=== PATIENT | male | born 1950 | race Asian ===

== ENCOUNTER 2017-04-19 05:31 | Inpatient (IN) | payer OTHER, MEDICAID ==
[~2017-04-19] VITALS: Ht 165.1 cm; Wt 79.8 kg
[2017-04-19] VITALS (13 sets, daily range): BP systolic 123–132; BP diastolic 63–75; PULSE 81–104; RESP 12–17; TEMP 97.7–98.9; O2SAT 99–100
[~2017-04-19 05:31] MED LIST: ALBU2.5V7 INH; ALEN70TA3 GT; AMLO5TAB4 GT; AMOX-423 GT; ASCO500T20 GT; BISA10SU65 RC; CALC-939 GT; CHLO473M5 PO; IBUP-1479 GT; INSU100V9 SUBCUT; LIP10 GT; LOSA50TA3 GT; MAGN400O4 GT; METO-442 PO; MULT9LIQ6 GT; PANT40SU2 GT; PRAV40TA GT; SALS500T19 GT; SENN-169 GT; SSNPH SQ; TYL160/5 GT; Uti-stat GT
--- NOTE | 2017-04-19 05:32 | NUR ---
Patient to ER bed 6 to gown for evaluation. Side rails up. Report given to Mimi FORTUNE.
--- NOTE | 2017-04-19 05:34 | NUR ---
RT at bedside setting up the vent
--- NOTE | 2017-04-19 05:35 | NUR ---
Patient brought to ER by Sqad [facility] from [facility] C/O palpitations & "more altered than normal" Patient is vent dependent, tracheostomy, tracks with eyes, responds to pain, rhonchi throughout, G-tube present, abdomen soft distended, incontinent of urine & feces, bedbound, upper extremities mildly edematous, lower extremities muscle atrophy, pressure ulcer on coxis. Mild respiratomy distress noted.
--- NOTE | 2017-04-19 05:39 | NUR ---
ER MD Whitney at bedside evaluating the patient
--- NOTE | 2017-04-19 05:40 | NUR ---
# 20 gauge angiocath placed to left radial vein. Use of asceptic technique. Opsite placed over site. Blood return noted. Blood for lab drawn from site, including blood cultures & lactic acid. Flushed with 10 cc of normal saline. No evidence of infiltration noted. Patient tolerated well.
[2017-04-19] MEDS ORDERED: NACL 0.9% 1,000 ML IV ONE ×2 (05:45→06:15)
--- NOTE | 2017-04-19 05:50 | NUR ---
# 16 FR Wilson catheter with use of sterile technique. Immediate return of 300 cc cloudy with sediments urine noted. Bedside drainage bag placed below level of bladder. Urine sample collected and sent to lab. Pt tolerated procedure well. Patient unable to toilet self.
[2017-04-19] MEDS ORDERED: IPRA0.2S6 INH ×2 (05:52)
[2017-04-19] MEDS ORDERED: FAMO20TA8 GT (05:54)
[2017-04-19] MEDS ORDERED: NA P118E RC (05:57)
[2017-04-19] MEDS ORDERED: GLUC1VIA4 IM (05:58)
[2017-04-19] MEDS ORDERED: HYDR-1189 GT (06:00)
[2017-04-19] MEDS ORDERED: LACT10SO6 PO (06:01)
--- NOTE | 2017-04-19 06:01 | NUR ---
Radiology at bedside with portable for xray
[2017-04-19 06:04] LABS: BILIRUBIN,URINE NEGATIVE (NEGATIVE); BLOOD, URINE 3+ (NEGATIVE); CLARITY/URINE CLOUDY (CLEAR); COLOR,URINE YELLOW (YELLOW); GLUCOSE,URINE NEGATIVE (NEGATIVE); KETONES,URINE NEGATIVE (NEGATIVE); LEUKOCYTE ESTERASE ,URINE 3+ (NEGATIVE); NITRITE, URINE NEGATIVE (NEGATIVE); PROTEIN URINE 2+ (NEGATIVE); UROBILINOGEN,URINE 0.2 (0.2-1.0)
[2017-04-19] MEDS ORDERED: MAGN296S30 GT (06:04)
[2017-04-19 06:05] LABS: BACTERIA,URINE FEW /HPF (None Seen); WBC,URINE >100 /HPF (0-3)
[2017-04-19] MEDS ORDERED: MINE25OI3 GT (06:10)
[2017-04-19] MEDS ORDERED: MULT GT (06:12)
[2017-04-19 06:13] LABS: BASOPHILS # (AUTO) 0.1 K/uL (0.0-0.2); BASOPHILS % (AUTO) 0.4 % (0.0-2.0); EOSINOPHILS % (AUTO) 0.1 % (0.0-4.0); HEMATOCRIT 32.3 % (36-54); HEMOGLOBIN 10.4 g/dL (14.0-18.0); LYMPHOCYTES # (AUTO) 0.4 K/uL (1.0-5.5); LYMPHOCYTES % (AUTO) 3.2 % (20.5-51.5); MEAN CORPUSCULAR HEMOGLOBIN 27 pg (27-31); MEAN CORPUSCULAR HGB CONC 32 % (32-36); MEAN CORPUSCULAR VOLUME 85 fL (79.0-98.0); MONOCYTES # (AUTO) 1.4 K/uL (0.0-1.0); MONOCYTES % (AUTO) 10.6 % (1.7-9.3); NEUTROPHILS # (AUTO) 11.5 K/uL (1.8-7.7); NEUTROPHILS % (AUTO) 85.7 % (40.0-70.0); PLATELET COUNT (AUTO) 258 K/uL (130-430); RED BLOOD CELL COUNT(AUTO) 3.82 MIL/uL (4.2-6.2); RED CELL DISTRIBUTION WIDTH 16.1 % (9.0-15.0); WHITE BLOOD COUNT (AUTO) 13.4 K/uL (4.8-10.8)
[2017-04-19] MEDS ORDERED: SIME80TA PO (06:13)
[2017-04-19 06:14] LABS: CALCIUM 9.8 mg/dL (8.4-11.0); CREATININE 1.41 mg/dL (0.55-1.30); POTASSIUM 4.6 mmol/L (3.5-5.1)
[2017-04-19] MEDS ORDERED: TRAM50TA92 PO (06:14)
[2017-04-19] MEDS ORDERED: ZIN220 GT (06:15)
[2017-04-19 06:18] LABS: ALBUMIN 3.4 g/dL (3.4-4.8); PROTHROMBIN TIME 10.6 SECS (9.5-12.5); TOTAL BILIRUBIN 0.5 mg/dL (0.0-1.0)
[2017-04-19] MEDS ORDERED: SSNOVOLOG SUBCUT (06:27)
[2017-04-19] MEDS ORDERED: cefTRIAXone 1 GM VIAL IM ONE (06:45)
[2017-04-19] MEDS ORDERED: cefTRIAXone 1 GM VIAL ONE (07:15)
[2017-04-19] MEDS ORDERED: cefTRIAXone 1 GM in D5W 50 ML IV ONE (07:15)
--- NOTE | 2017-04-19 07:17 | NUR ---
Received bedside report from Mimi FORTUNE. Pt awake, alert, orientated x1 to self. Pt unable to follow commands but withdraws to painful stimuli. Pt is a chronic trach to vent. Pt tolerating vent settings. O2 sat 100%. No acute distress noted. Will continue to monitor.
--- NOTE | 2017-04-19 07:19 | NUR ---
Patient care endorsed to Leah FORTUNE via SBAR.
--- NOTE | 2017-04-19 07:55 | NUR ---
Pt transported to CT via gurney with assistance from RT.
--- NOTE | 2017-04-19 08:10 | NUR ---
Pt returned from CT.
[2017-04-19] MEDS ORDERED: PIPERACILLIN/TAZOBACTAM 2.25 GM in NS 50 ML IV ONE (08:15)
[2017-04-19] MEDS ORDERED: VANCOMYCIN HCL 1,000 MG in NS 250 ML IV ONE (08:15)
[2017-04-19] MEDS ORDERED: ACETAMINOPHEN 325 MG TABLET PO PRN (08:15)
[2017-04-19] MEDS ORDERED: ONDANSETRON HCL 4 MG/2 ML VIAL IVP PRN (08:15)
[2017-04-19] MEDS ORDERED: HYDROcodone/ACETAMIN 5-325 MG TAB (NORCO/ VICODIN) PO PRN (08:15)
[2017-04-19] MEDS ORDERED: MORPHINE 2 MG/ML INJ. SYRINGE IVP PRN (08:15)
--- NOTE | 2017-04-19 08:55 | NUR ---
Pt transported to tele bed 111A via gurney with assistance from RT. Bedside report given to Leanna FORTUNE. V/S stable, all care endorse to Leanna FORTUNE.
--- NOTE | 2017-04-19 09:00 | NUR ---
ADMISSION NOTE RECEIVED PT FROM Papito PHILLIPS WITH A VENTILATOR, AWAKE BUT APHASIC, BREATHING NON LABORED,PLACED ON TELEMETRY, NO FAMILY MEMBER AT THIS TIME, DUE TO PT MENTAL CONDITION, ADMISSION DATA WILL GET FROM PREVIOUS RECORDS.
--- NOTE | 2017-04-19 09:18 | NUR ---
@0845 TRANSFERRED TO PT TO ROOM 111 FROM ER. NO RESPIRATORY DISTRESS NOTED
--- NOTE | 2017-04-19 10:29 | NUR ---
Consult was called Re: Sepsis secondary to uti spoke with Dana from Dr Stefan rasmussen .
--- NOTE | 2017-04-19 11:00 | NUR ---
note Rec'd pt from admit TONG Ram at 1030am for continuation of care. Pt having resp care from resp therapist at this time. Pt on mechanical ventilator. IVF's and antibiotic IVPB infusing at this time. Pt on air mattress and pt being turned q2' and needs attended to at this time. Call light within reach. No needs noted.
[2017-04-19] MEDS: 0.45% NACL 1,000 ML IV SCH (11:05)
[2017-04-19] MEDS: IPRATROPIUM/ALBUTEROL SULFATE 3 ML AMPUL.NEB INH SCH ×4 (11:19→23:24)
--- NOTE | 2017-04-19 13:30 | NUR ---
NOTE PT RESTING IN BED. PT HAS HIS EYES CLOSED AND NO PAIN/SOB NOTED AT THIS TIME. TELE UNIT HAS BEEN ATTACHED AND INTACT ALL SHIFT. CALL LIGHT WITHIN REACH AND PT CHECKED ON Q1' AND PRN FOR NEEDS.
--- NOTE | 2017-04-19 15:30 | NUR ---
NOTE PT RESTING IN BED. PT TURNED Q2' FOR COMFORT AND CIRCULATION AT THIS TIME. RESP THERAPIST ATTENDING TO RESP NEEDS AT THIS TIME. NO NEEDS NOTED. CALL LIGHT WITHIN REACH.
--- NOTE | 2017-04-19 17:00 | NUR ---
NOTE PT RESTING IN BED. IVF'S INFUSING WELL AND VILLANUEVA CATHETER INTACT AND DRAINING WELL. CALL LIGHT WITHIN REACH.
--- NOTE | 2017-04-19 18:08 | NUR ---
NOTE PT RESTING IN BED WITH EYES CLOSED. NO SOB/RESP DISTRESS OR PAIN/DISCOMFORT NOTED AT THIS TIME. IVF'S INFUSING WELL THROUGH LEFT WRIST IV SITE. TRACH VENTILATING PT WELL AT THIS TIME. VILLANUEVA CATHETER INTACT AND DRAINING WELL. NO NEEDS NOTED. CALL LIGHT WITHIN REACH. TELE UNIT INTACT AND TRANSMITTING. PT WAS CHECKED ON Q1' AND PRN FOR NEEDS AND CARE. PT MAINTAINED WITH SAFETY PRECAUTIONS ALL SHIFT.
--- NOTE | 2017-04-19 19:50 | NUR ---
Initial Notes Patient resting in bed, no s/s of pain or discomfort noted. No SOB noted, on trach, settings verified. Denies nausea/vomiting at this time. IV site patent, flushes well, infusing fluids as ordered. Patient repositioned in bed. Goal of pain management, cardiac/respiratory stability and safety this shift. Safety precautions in place. Will continue to monitor.
--- NOTE | 2017-04-19 22:10 | NUR ---
Notes Patient sleeping at this time. No s/s of pain or discomfort noted. No SOB noted. IV site patent, flushes well, infusing fluids as ordered. G tube feeding ongoing, no residual noted at this time. Will continue to monitor.
[2017-04-20] VITALS (18 sets, daily range): BP systolic 108–124; BP diastolic 62–73; PULSE 75–99; RESP 17–19; TEMP 97–97.8; O2SAT 99–100
--- NOTE | 2017-04-20 00:10 | NUR ---
Notes Patient sleeping at this time. No s/s of pain or discomfort noted. No SOB noted. IV site patent, flushes well, infusing fluids as ordered. Patient cleaned and repositioned with MANAGER LSW. Will continue to monitor.
[2017-04-20] MEDS: 0.45% NACL 1,000 ML IV SCH ×2 (02:52→16:48)
[2017-04-20] MEDS: IPRATROPIUM/ALBUTEROL SULFATE 3 ML AMPUL.NEB INH SCH ×5 (03:18→20:44)
--- NOTE | 2017-04-20 04:15 | NUR ---
Notes Patient sleeping at this time. No s/s of pain or discomfort noted. No SOB noted. IV site patent, flushes well, infusing fluids as ordered. Will continue to monitor.
--- NOTE | 2017-04-20 06:44 | NUR ---
Closing Notes No s/s of pain or discomfort noted. No SOB noted, on trach. Denies nausea/vomiting at this time. IV site patent, flushes well, infusing fluids as ordered. Goal of pain management, cardiac/respiratory stability and safety met. Safety precautions in place. Will continue to monitor.
--- NOTE | 2017-04-20 08:00 | NUR ---
NOTE PT RESTING IN BED. VSS. TRACH VENTILATING PT WELL AT THIS TIME. IVF'S INFUSING THROUGH LEFT HAND IV SITE. NO SOB/RESP DISTRESS OR PAIN/DISCOMFORT NOTED AT THIS TIME. GT FEEDINGS INFUSING WELL THROUGH GT SITE. VILLANUEVA CATHETER INTACT AND DRAINING WELL. CALL LIGHT WITHIN REACH.
--- NOTE | 2017-04-20 08:48 | NUR ---
Nutrition Update Desmond Scale 14 noted. Pt admitted for sepsis 2/2 UTI. Diet: Diabetisource AC at 70 ml/hr, Free Water Flush: 100 via GT BMI: 29.3 kg/m2 RD to follow per nutrition care standards.
[2017-04-20 09:06] LABS: BASOPHILS % (AUTO) 0.4 % (0.0-2.0); EOSINOPHILS # (AUTO) 0.2 K/uL (0.0-0.4); EOSINOPHILS % (AUTO) 2.7 % (0.0-4.0); HEMATOCRIT 27.8 % (36-54); HEMOGLOBIN 8.8 g/dL (14.0-18.0); LYMPHOCYTES # (AUTO) 0.9 K/uL (1.0-5.5); LYMPHOCYTES % (AUTO) 11.7 % (20.5-51.5); MEAN CORPUSCULAR HEMOGLOBIN 27 pg (27-31); MEAN CORPUSCULAR HGB CONC 32 % (32-36); MEAN CORPUSCULAR VOLUME 85 fL (79.0-98.0); MONOCYTES # (AUTO) 0.6 K/uL (0.0-1.0); MONOCYTES % (AUTO) 7.8 % (1.7-9.3); NEUTROPHILS # (AUTO) 5.7 K/uL (1.8-7.7); NEUTROPHILS % (AUTO) 77.4 % (40.0-70.0); PLATELET COUNT (AUTO) 192 K/uL (130-430); RED BLOOD CELL COUNT(AUTO) 3.28 MIL/uL (4.2-6.2); RED CELL DISTRIBUTION WIDTH 16.4 % (9.0-15.0); WHITE BLOOD COUNT (AUTO) 7.4 K/uL (4.8-10.8)
[2017-04-20 09:18] LABS: CALCIUM 8.9 mg/dL (8.4-11.0); CREATININE 1.23 mg/dL (0.55-1.30); POTASSIUM 3.9 mmol/L (3.5-5.1)
[2017-04-20 09:22] LABS: ALBUMIN 2.7 g/dL (3.4-4.8); PHOSPHORUS 2.5 mg/dL (2.7-4.5); TOTAL BILIRUBIN 0.4 mg/dL (0.0-1.0)
--- NOTE | 2017-04-20 10:00 | NUR ---
NOTED PT'S MRSA SCREEN WAS POSITIVE FOR MRSA. PT IS ALREADY ON ISOLATION PRECAUTIONS FOR HX OF MRSA. ABG'S WAS DONE AND RESULTS WNL. CALL LIGHT WITHIN REACH.
--- NOTE | 2017-04-20 11:03 | NUR ---
DISCHARGE PLANNING DC planning for LTAC at [facility]. FRANKI Longoria speaking with family. Addendum: 04/20/17 at 1406 by Kiersten RICHARDSON Per note family request for intermediate project manager subacute placement close to [facility]. Faxed referrals to: [facility] [address] [place] [address] [phone] [facility] [address] [place] [address] [phone] [facility] [address] [place] [address] [phone] [facility] [address] [place] [address] [phone] DCP will follow up on SubAcute bed availability. Family agreeable with patient to return back to [facility] if no bed available. Addendum: 04/20/17 at 1441 by Kiersten RICHARDSON Meanwhile; Faxed referral to [facility] [phone]. Will follow up.
--- NOTE | 2017-04-20 12:30 | NUR ---
NOTE NO NEEDS NOTED. PT RESTING WITH EYES CLOSED. TRACH CARE AND BREATHING TREATMENTS BEING DONE BY RESP THERAPIST SCHEDULED. NO NEEDS NOTED. PT TURNED Q2' FOR COMFORT AND CIRCULATION. CALL LIGHT WITHIN REACH.
--- NOTE | 2017-04-20 16:15 | NUR ---
NOTE PT TURNED Q2' AND REPOSITIONED NEEDED. GT FEEDINGS INFUSING WELL. IVF'S INFUSING AT THIS TIME. NO SOB/RESP DISTRESS OR PAIN/DISCOMFORT WAS NOTED AT THIS TIME. CALL LIGHT WITHIN REACH. TELE UNIT ATTACHED AND INTACT AT THIS TIME. NO NEEDS NOTED. PT CHECKED ON Q1' AND PRN FOR NEEDS AND CARE ALL SHIFT.
--- NOTE | 2017-04-20 18:25 | NUR ---
NOTE PT RESTING IN BED WITH EYES CLOSED. NO SOB./RESP DISTRESS OR PAIN/DISCOMFORT NOTED. TELE UNIT ATTACHED AND INTACT ALL SHIFT. VILLANUEVA CATHETER INTACT AND DRAINING WELL. PT WAS CHECKED ON Q1' AND PRN FOR NEEDS AND CARE. PT WAS MAINTAINED WITH SAFETY PRECAUTIONS ALL SHIFT. IVF'S INFUSING WELL THROUGH LEFT HAND IV SITE. NO NEEDS NOTED AT THIS TIME. TRACH VENTILATING PT WELL AND GT FEEDINGS ON AND INFUSING. CALL LIGHT WITHIN REACH.
--- NOTE | 2017-04-20 22:13 | NUR ---
Notes Patient sleeping at this time. No s/s of pain or discomfort noted. No SOB noted. IV site patent, flushes well, infusing fluids as ordered. Diabetisource feeding @ 70cc/hr ongoing, no residual noted at this time. Will continue to monitor.
[2017-04-21] VITALS (20 sets, daily range): BP systolic 117–148; BP diastolic 67–84; PULSE 63–86; RESP 16–20; TEMP 96.6–97.6; O2SAT 98–100; Ht 165.1 cm; Wt 79.8 kg
--- NOTE | 2017-04-21 00:06 | NUR ---
REPORT GIVEN/ DISCHARGE : REPORT GIVEN TO RN CAME WITH AMBULANCE ; PT IS COMFORTABLE ; NOT IN ANY ACUTE DISTRESS; DISCHARGE INSTRUCTIONS AND ARE WITH EMT ; PT SI UNABLE TO AMBULATE ; PT IN STABLE CONDITION ; VITALS ARE STABLE ; ID BAND REMOVED ; GT FLUSHED WELL AND DISCONNECTED ; IV FLUSHED WELL AND DISCONNECTED; IV CATH(ACCESS )IS STILL INTACT ;VILLANUEVA IS INTACT ; NO BELONGINGS NOTED AT BEDSIDE . BACTROBAN MEDICATION TUBE GIVEN TO EMT . PT IS ON TRACH WITH VENT SUPPORT , SIMV 6, TV 500 , PEEP 5 , FIO2 30% . PT WHEELED OUTSIDE VIA [place] .[facility] IS GOING [facility] . Addendum: 04/22/17 at 0008 by Benito Torres RN WRONG DATE Addendum: 04/22/17 at 0008 by Benito Torres RN CORRECTION : WRONG DATE
--- NOTE | 2017-04-21 00:08 | NUR ---
Notes Patient sleeping at this time. No s/s of pain or discomfort noted. No SOB noted. IV site patent, flushes well, infusing fluids as ordered. Patient cleaned and repositioned with COIL TESTER. Will continue to monitor.
[2017-04-21] MEDS: IPRATROPIUM/ALBUTEROL SULFATE 3 ML AMPUL.NEB INH SCH ×5 (03:15→20:23)
--- NOTE | 2017-04-21 04:10 | NUR ---
Notes Patient sleeping at this time. No s/s of pain or discomfort noted. No SOB noted. IV site patent, flushes well, infusing fluids as ordered. Patient cleaned and repositioned with MANAGER INTERFACE. Will continue to monitor.
[2017-04-21] MEDS: 0.45% NACL 1,000 ML IV SCH (05:29)
--- NOTE | 2017-04-21 07:30 | NUR ---
AM NOTES RECIEVED REPORT FROM ANASTACIO, OFFGOING NURSE, AT THE BEDSIDE. PATIENT IS AWAKE AND ALERT, AND NONVERBAL, BUT NODS YES AND NO. PATIENT UNDERSTANDS HAKKA UPPER SORBIAN, WHICH I SPEAK. PT ON TRACH VIA VENT, FIO2 30, TV 500, PEEP 5. PT STATES NO DISCOMFORT OR PAIN AT THIS TIME, BUT WOULD LIKE HIS LIMBS STRETCHED ON THE LOWER EXTREMITIES. PT HAS WEAK LEFT ARM. PT HAS LOWER AIR MATTRESS. REPOSITION FOR COMFORT. GT FEEDING TOLERATED WELL AND IV FLUIDS INFUSING WELL. MAINTAINED ON CONTACT ISOLATION FOR MRSA NARES. NOTED THAT THERE IS NO IV ANTIBIOTICS ORDERED. NOTIFIED NIGHT NURSE. NIGHT NURSE PAGED .
--- NOTE | 2017-04-21 07:35 | NUR ---
Pagecarlos NARANJO, to clarify regarding antibiotic order for patient. Awaiting call back.
--- NOTE | 2017-04-21 07:40 | NUR ---
ATTENDING MD DR Chadd CONTRERAS WAS CALLED RE: CLARIFICATION OF ABX. LEFT A VOICE MESSAGE
[2017-04-21 09:17] LABS: BASOPHILS % (AUTO) 0.4 % (0.0-2.0); EOSINOPHILS # (AUTO) 0.3 K/uL (0.0-0.4); EOSINOPHILS % (AUTO) 5.3 % (0.0-4.0); HEMATOCRIT 27.8 % (36-54); HEMOGLOBIN 8.8 g/dL (14.0-18.0); LYMPHOCYTES % (AUTO) 17.8 % (20.5-51.5); MEAN CORPUSCULAR HEMOGLOBIN 27 pg (27-31); MEAN CORPUSCULAR HGB CONC 32 % (32-36); MEAN CORPUSCULAR VOLUME 85 fL (79.0-98.0); MONOCYTES # (AUTO) 0.5 K/uL (0.0-1.0); MONOCYTES % (AUTO) 9.9 % (1.7-9.3); NEUTROPHILS # (AUTO) 3.7 K/uL (1.8-7.7); NEUTROPHILS % (AUTO) 66.6 % (40.0-70.0); PLATELET COUNT (AUTO) 186 K/uL (130-430); RED BLOOD CELL COUNT(AUTO) 3.27 MIL/uL (4.2-6.2)
[2017-04-21 09:22] LABS: WHITE BLOOD COUNT (AUTO) 5.5 K/uL (4.8-10.8)
[2017-04-21 09:41] LABS: ALBUMIN 2.7 g/dL (3.4-4.8); CALCIUM 9.1 mg/dL (8.4-11.0); CREATININE 0.95 mg/dL (0.55-1.30); POTASSIUM 3.8 mmol/L (3.5-5.1); TOTAL BILIRUBIN 0.3 mg/dL (0.0-1.0)
--- NOTE | 2017-04-21 09:58 | NUR ---
Notes Spoke to Dr. Thomas regarding antibiotics order and home medication. MD ordered vancomycin and zosyn via pharmacy to dose, and order to hold all medications from home. MD also ordered to transfuse 1 unit of PRBC. MD also wants to inform case management assistant for patient to be transferred to [facility] in [place], and if not accepted, patient will go to [facility]. Chaka, case management assistant, made aware.
[2017-04-21] MEDS ORDERED: COMMUNICATION ORDER XX ONE ×2 (10:00→11:45)
--- NOTE | 2017-04-21 10:02 | NUR ---
Rounds Patient resting bed comfortably. Turned and repositioned the patient on the Left side.
[2017-04-21] MEDS ORDERED: VANCOMYCIN HCL 1,000 MG in NS 250 ML IV SCH (10:15)
--- NOTE | 2017-04-21 10:29 | NUR ---
TELEPHONE CONSENT SPOKE TO PATIENT'S COUSIN, KVNG, WHO IS ALSO THE DECISION MAKER FOR THE PT REGARDING CONSENT TO ADMINISTER BLOOD. KVNG AGREED TO TRANSFUSE BLOOD.
[2017-04-21] MEDS ORDERED: PIPERACILLIN/TAZOBACTAM 3.375 GM/ D5W 50 ML IV SCH ×2 (10:30)
--- NOTE | 2017-04-21 11:50 | NUR ---
MD CALLED SPOKE TO DR. CONTRERAS AND MADE AWARE OF URINE CULTURE RESULTS. WANTS TO ADD MEROPENEM PER PHARMACY TO DOSE. WANTS THIS NURSE TO PUT ORDERS.
--- NOTE | 2017-04-21 12:20 | NUR ---
NOTES SPOKE TO DR. CONTRERAS REGARDING MEROPENEM ORDER. PHARMACY RECOMMENDATION IS TO NOT GIVE TWO ANTIBIOTICS AT THE SAME TIME. ORDERED TO Josee ROSARIO. PHARMACY MADE AWARE.
--- NOTE | 2017-04-21 12:22 | NUR ---
DISCHARGE PLANNING [facility], [facility], [facility], and [facility] currently has no terminologist Subacute bed available. Met with Ashleigh Jeff [phone] in nurse station who stated MD requested patient to be evaluated and will return DCP call with facility decision. Meanwhile; Called [facility] [phone] spoke with Shant in admitting who will return call with ISO bed availability. DCP will follow up. Addendum: 04/21/17 at 1538 by Kiersten Alcantar DP Ashleigh Jeff [phone] patient accepted [facility] assigned to room 308A RN to report [phone] bed available after 7pm. TONG Garcia made aware. Pending discharge order. Ordered Radiology Cd. Placed transportation packet in nurses station. Pending discharge order. Addendum: 04/21/17 at 1548 by Kiersten Alcantar DP Called [facility] [phone] spoke with SHAN cohn ACLS (Financial Coach) transport on will call.
--- NOTE | 2017-04-21 14:05 | NUR ---
NOTES PATIENT RESTING COMFORTABLE IN BED WITH NO SIGNS OR SYMPTOMS OF PAIN. G-TUBE FEEDING TOLERATED WELL. IV ANTIBIOTICS STILL INFUSING, WILL INFUSE BLOOD AFTER ANTIBIOTICS IS COMPLETE.
--- NOTE | 2017-04-21 14:31 | NUR ---
Dietitian Recommendations * Recommend continuing Diabetisource AC at 70 ml/hr, Free Water Flush: 100 via GT per MD Provides: 2016 kcal/day, 101 gm protein/day, and 1374 ml free water/day Meets: 88% of upper end of estimated caloric needs and 109% of lower end of estimated protein needs LP, RD Please refer to Nutrition Assessment for details.
--- NOTE | 2017-04-21 14:45 | NUR ---
NOTES BLOOD TRANSFUSION STARTED AT THIS TIME. PATIENT AFEBRILE. WILL MONITOR FOR SIGNS AND SYMPTOMS OF TRANSFUSION REACTIONS.
--- NOTE | 2017-04-21 15:50 | NUR ---
NOTES- SPOKE TO DR. CONTRERAS AND MADE AWARE THAT PATIENT IS ACCEPTED AT [facility]. MD OKAYED TO DISCHARGE PATIENT AND HE WILL FOLLOW UP PATIENT THERE.
--- NOTE | 2017-04-21 16:05 | NUR ---
NOTES NOTIFIED PATIENTS FAMILY OF TRANSFERRING PATIENT TO [facility]. VKNG JALIL (COUSIN) MADE AWARE AND AGREED ON TRANSFER. Addendum: 04/21/17 at 1629 by Yesenia Kyle RN PATIENT IS AWAKE AND ALERT, RESTING COMFORTABLY IN BED. PATIENT STATES NO DISCOMFORT OR FEELINGS OF PAIN AT THIS TIME. NOTIFIED PATIENT THAT HE WILL BE DISCHARGED. BLOOD TRANSFUSION STILL INFUSING. IV SITE PATENT AND INTACT, NO SIGNS OF REDNESS OR SWELLING. G-TUBE FEEDING TOLERATED WELL. PATIENT REPOSITIONED ONTO THE LEFT SIDE.
[2017-04-21] MEDS ORDERED: MEROPENEM 1 GM in NS 100 ML IV SCH (17:00)
--- NOTE | 2017-04-21 17:18 | NUR ---
ARRANGED WITH [facility] ACLS TRANSPORT (VENT/MONITOR) TO [facility] RM 308A. FUNERAL SERVICE PRACTITIONER/EMBALMER TIME IS 2100. SPOKE TO JAMEEL
--- NOTE | 2017-04-21 18:02 | NUR ---
notes- Blood transfusion is done. no reaction noted.
--- NOTE | 2017-04-21 18:31 | NUR ---
CLOSING NOTES PATIENT IS AWAKE, ALERT, AND RESTING COMFORTABLY IN BED. PT DENIES ANY SYMPTOMS OF PAIN AT THIS MOMENT. TOLERATED GTUBE FEEDING WELL THROUGHOUT THE SHIFT. PICTURE TAKEN FOR THE BUTTOCKS AND DOCUMENTED IN THE CHARTS, ZGAURD APPLIED AND COVERED WITH FOAM DRESSING. PATIENT WILL BE DISCHARGED TO [facility] AT [facility]. WILL ENDORSE TO ONCOMING NURSE.
--- NOTE | 2017-04-21 20:40 | NUR ---
INITIAL NOTES: REPORT RECEIVED FROM AN , PT IS COMFORTABLE , GETTING READY TO TRANSFER TO [facility] BY 9 PM TONIGHT . WILL CONTINUE TO MONITOR.
--- NOTE | 2017-04-21 20:44 | NUR ---
REPORT GIVEN: ADINA RUELAS [place] [facility] CALLED , REPORT GIVEN TO RN , INFORMED HER ABOUT THE DNR STATUS , ON TRACH WITH MECHANICAL VENT SIMV 6, TV 500, PEEP 5, FIO2 30% , ALSO INFORMED HER THAT PT IS ON ISOLATION FOR MRSA NARES AND MDRO URINE , GIVEN MEDICATION LIST , INFORMED ABOUT THE WOUND;IV ACCESS , VILLANUEVA AND GT FEEDING , . RN IS SATISFIED WITH THE REPORT , NO QUESTIONS AT THIS TIME . PER DIE DRAWING CHECKER AMBULANCE WILL BE LATE. WILL CONTINUE TO MONITOR PT .
[2017-04-21] MEDS ORDERED: MUPIROCIN 2% TOPICAL OINTMENT 22 GM NS SCH (21:00)
--- NOTE | 2017-04-21 22:00 | NUR ---
RN NOTES: PT IS COMFORTABLE ; NOT IN ANY ACUTE DISTRESS; DUE BACTROBAN WAS GIVEN . WILL CONTINUE TO MONITOR.
--- NOTE | 2017-04-21 23:00 | NUR ---
RN NOTES: PT IS COMFORTABLE ; NOT IN ANY ACUTE DISTRESS ; WILL CONTINUE TO MONITOR.
--- NOTE | 2017-04-22 00:07 | NUR ---
REPORT GIVEN/ DISCHARGE : REPORT GIVEN TO RN CAME WITH AMBULANCE ; PT IS COMFORTABLE ; NOT IN ANY ACUTE DISTRESS; DISCHARGE INSTRUCTIONS AND ARE WITH EMT ; PT SI UNABLE TO AMBULATE ; PT IN STABLE CONDITION ; VITALS ARE STABLE ; ID BAND REMOVED ; GT FLUSHED WELL AND DISCONNECTED ; IV FLUSHED WELL AND DISCONNECTED; IV CATH(ACCESS )IS STILL INTACT ;VILLANUEVA IS INTACT ; NO BELONGINGS NOTED AT BEDSIDE . BACTROBAN MEDICATION TUBE GIVEN TO EMT . PT IS ON TRACH WITH VENT SUPPORT , SIMV 6, TV 500 , PEEP 5 , FIO2 30% . PT WHEELED OUTSIDE VIA [employer] .PT IS GOING TO [facility] .
[2017-04-22 00:27] VITALS: BP 130/72; PULSE 69; RESP 20; TEMP 97.1; O2SAT 96
== END 2017-04-22 00:07 | DRG 871 ==
LOC: SED 05:31 → STU 08:10
PROVIDERS: ADMIT Internal Medicine Nephrology; ATTEND Internal Medicine Nephrology
PROC: 5A1945Z Respiratory Ventilation, 24-96 Consecutive Hours (ICD-10-PCS; principal; 2017-04-19)
PROC: 30233N1 Transfusion of Nonautologous Red Blood Cells into Peripheral Vein, Percutaneous Approach (ICD-10-PCS; 2017-04-21)
DX: A41.9 Sepsis, unspecified organism (principal); J18.9 Pneumonia, unspecified organism; G93.41 Metabolic encephalopathy; J44.9 Chronic obstructive pulmonary disease, unspecified; I50.9 Heart failure, unspecified; N39.0 Urinary tract infection, site not specified; J98.11 Atelectasis; E86.0 Dehydration; E11.65 Type 2 diabetes mellitus with hyperglycemia; N18.9 Chronic kidney disease, unspecified; D64.9 Anemia, unspecified; Z93.0 Tracheostomy status; Z86.73 Personal history of transient ischemic attack (TIA), and cerebral infarction without residual deficits; Z93.1 Gastrostomy status; Z88.1 Allergy status to other antibiotic agents; Z79.899 Other long term (current) drug therapy
CPT/HCPCS: 36415; 36600; 70450-TC; 71010; 80053; 81000-TC; 82803-TC; 82962; 83605; 83690-TC; 83735-TC; 83880; 84100-TC; 84484; 85025; 85610-TC; 85730-TC; 86886; 86900; 86901; 86920; 87040-TC; 87081; 87086; 87186-TC; 93005; 94003; 94640; 94760; 96361; 96365; 99285; J0696; J2185; J2543; J3370; J7030; J7040; J7050; J7060; P9021